=== PATIENT | female | born 1955 | race Caucasian/White ===

== ENCOUNTER 2016-08-23 23:48 | Observation (INO) | payer OTHER ==
--- NOTE | ~2016-08-23 | HP ---
History And Physical [address] [place]. [address] NAME: SAWYER VELA : 55 STATUS : ADM [place] PAT#: [id number] AGE: 60 ADM/REG DATE : 08/24/16 MR#: [id number] REPORT SERV DATE: 08/24/16 DICTATED BY: NGA LLANES DATE: 08/24/16 REPORT STATUS : Draft TRANSCRIBED BY: MODCynthia DATE: 08/24/16 DATE OF ADMISSION: 08/24/2016 LEAD [employer] SOFTWARE ENGINEER: Leena Frost MD CHIEF COMPLAINT: Atypical chest pain. HISTORY OF PRESENT ILLNESS: A pleasant 60-year-old white female with no known history of CAD. States that over the past three weeks, she has experienced episodes of chest discomfort worse over the past two days. She describes them as "sharp" radiating across her chest toward her back and into her neck. She did notify her GI doctor, who is currently treating her for ulcerative colitis or Crohn disease, as the patient believes her symptoms all began with the addition of Imuran to her regimen approximately three weeks ago. A PPI was added with some improvement in her symptoms, but not complete resolution. The patient denies reports associated shortness of breath, nausea, and dizziness. Denies diaphoresis or belching. At its most intense, she rates the chest pain a 10/10. At the time of interview in the [facility], she rates it a 1/10. She states the episode has been constant, improved with nitroglycerin provided by EMS. She reports no change in her activity. There seems to be no pattern to her symptoms. She did consume a hot dog and orange juice for dinner last night. The chest pain worsened last evening around 2029. She felt it prudent to come to the emergency room. The patient denies any personal history of myocardial infarction, stroke, DVT, or pulmonary embolus. The patient treated for the flu 06/2016, describes rare palpitations, does not consume caffeinated beverages. No syncopal episodes. Denies PND, but does report some orthopnea, sleeps on 4 pillows. PAST MEDICAL HISTORY: 1. Hypertension. 2. Cholesterol per PCP. 3. Denies diabetes. 4. Crohn disease with Remicade infusions. 5. GERD. 6. Depression. 7. History of nephrolithiasis. 8. Positive family history for CAD. SOCIAL HISTORY: She is with one child. She is a retired food beverage manager, currently disabled. Does not have an exercise routine. Denies tobacco, alcohol, or illicits. FAMILY HISTORY: Mother with a stroke and heart attack, at the age of 61. Father with reported CAD and emphysema, at 56. Brother with 2 valve replacements, remains alive at 62. Sisters with reported CAD and emphysema alive at 64 and 65. REVIEW OF SYSTEMS: History And Physical [address] [address] NAME: SAWYER VELA : 55 STATUS : ADM [place] PAT#: [id number] AGE: 60 ADM/REG DATE : 08/24/16 MR#: [id number] REPORT SERV DATE: 08/24/16 DICTATED BY: NGA LLANES DATE: 08/24/16 REPORT STATUS : Draft TRANSCRIBED BY: SARAH DATE: 08/24/16 A 14-point review of systems performed, significant for HPI including snores per report with no formal sleep study. Right-sided Port-A-Cath for Remicade infusions, history of scoliosis, ambulates with a cane. Otherwise, complete review of systems obtained and negative. ALLERGIES: ALLERGY TO PENICILLIN, UPSET STOMACH AND BLEEDING; PHENERGAN, CONFUSION, SEVERE HEADACHE; SULFA, ITCHING; CODEINE, ITCHING; ASPIRIN, BLEEDING IN STOMACH. HOME MEDICATIONS: Tylenol p.r.n., vitamin C 500 mg daily, Imuran 50 mg daily, vitamin D 5000 units daily, vitamin B12 500 mcg daily, hydrochlorothiazide 25 mg daily, Remicade infusion every 56 days most recently two to three weeks ago, pantoprazole 40 mg daily, Zantac 150 mg twice daily, Zoloft 50 mg twice daily. PHYSICAL EXAMINATION: VITAL SIGNS: Blood pressure 131/68, pulse 78, respirations 17, temperature 98.0, and O2 saturation 94% on room air. Height 5 feet 6 inches. No weight provided. GENERAL: Cooperative, in no apparent distress. Speech impediment. HEENT: Pupils 2 mm, sclera nonicteric. Nares patent. Moist mucous membranes. No xanthelasma. NECK: Trachea midline, no thyromegaly. No JVD. No bruits. LYMPH: No cervical lymphadenopathy. No supraclavicular lymphadenopathy. RESPIRATORY: Unlabored respirations. Breath sounds clear bilaterally to posterior auscultation. No wheezes or rhonchi. CARDIOVASCULAR: Regular rate. No murmur, rub or gallop appreciated. Extremities without edema. Pulses 2+ bilaterally. ABDOMEN: Soft, nontender, nondistended, normal bowel sounds auscultated throughout. No organomegaly. SKIN: Warm, dry extremities. No pallor, or cyanosis. PSYCHIATRIC: Appropriate affect. Alert, oriented x3. LABORATORY DATA: Troponin less than 0.02 x2 and third pending. Potassium 3.9, BUN 15, creatinine 0.68, glucose 114, and magnesium 1.7. Lipase 110. WBC 8.3, hemoglobin 13.4, hematocrit 39.3, and platelet count 370,000. D-dimer pending. EKG sinus rhythm. ASSESSMENT AND PLAN: 1. Atypical chest pain. The patient has been observed in the CPOU. Two sets of cardiac markers negative. Third pending. The patient is being held n.p.o. for now. We will proceed with MPI today. If D-dimer negative, the patient will be discharged home if low risk, no ischemia. If anything suggestive of ischemia, Cardiology referral will be initiated. Otherwise, the patient has a followup with her PCP. Scheduled for tomorrow 08/25/2016, which she has been instructed to keep. 2. Shortness of breath and fatigue. Check a D-dimer and TSH and free T4. Further recommendations are forthcoming those results. 3. Hypertension. Monitor blood pressure and continue home medications. EVAN/SARAH History And Physical [address] [address] NAME: SAWYER VELA : 55 STATUS : ADM [place] PAT#: [id number] AGE: 60 ADM/REG DATE : 08/24/16 MR#: [id number] REPORT SERV DATE: 08/24/16 DICTATED BY: NGA LLANES DATE: 08/24/16 REPORT STATUS : Draft TRANSCRIBED BY: SARAH DATE: 08/24/16 Nga Llanes, MSN, APPLICATION MANAGER-BC / [id number] CC: ARISTIDES Francis, APPLICATION MANAGER-BC SUGAR NEAL
[~2016-08-23 23:48] MED LIST: ACET500CAP PO; BENTYL10 PO; CYANO1000T PO; REMICADE IV; VITC500 PO; ZANTAC 150 PO; ZIAC5 PO; ZOL50 PO
[2016-08-24 01:45] LABS: BASOPHILS 0.4 %; BASOPHILS ABSOLUTE 0.03 10/3/uL (0.0-0.16); EOSINOPHILS 0.8 %; EOSINOPHILS ABSOLUTE 0.07 10/3/uL (0.0-0.53); HEMATOCRIT 39.3 % (36.0-48.0); HEMOGLOBIN 13.4 g/dL (12.0-16.0); IMMATURE GRANULOCYTES 0.2 %; IMMATURE GRANULOCYTES ABSOLUTE 0.02 10/3/uL (0.0-0.11); LYMPHOCYTES 39.8 %; LYMPHOCYTES ABSOLUTE 3.29 10/3/uL (0.67-4.30); MEAN CORPUS HGB CONC 34.1 g/dL (32.0-36.0); MEAN CORPUSCULAR HEMOGLOB 30.2 pg (26.0-34.0); MEAN CORPUSCULAR VOLUME 88.5 fL (80-100); MEAN PLATELET VOLUME 10.1 fL (9.2-13.0); MONOCYTES 7.9 %; MONOCYTES ABSOLUTE 0.65 10/3/uL (0.21-1.20); NEUTROPHILS 50.9 %; NEUTROPHILS ABSOLUTE 4.21 10/3/uL (2.02-8.40); PLATELET COUNT 370 10/3/uL (150-400); RBC DISTRIBUTION WIDTH 13.3 % (12.0-16.0); RED CELL COUNT 4.44 10/6/uL (4.0-5.6); WHITE BLOOD CELLS 8.3 10/3/uL (4.5-10.5)
[2016-08-24 01:47] LABS: ER CBC TAT 0 Hrs 04 MinsNP; MANUAL DIFF NO %
[2016-08-24 01:52] LABS: PARTIAL THROMBO TIME 25.5 SEC (22.5-37.2)
[2016-08-24 02:03] LABS: ALBUMIN 3.5 G/DL (3.5-5.0); ALKALINE PHOSPHATASE 54 U/L (45-117); BUN (BLOOD UREA NITROGEN) 15 MG/DL (6-23); CALCIUM, SERUM 9.2 MG/DL (8.5-10.4); CHEST PAIN PROFILE TAT 0 Hrs 22 Mins; CHLORIDE, SERUM 108 MMOL/L (96-112); CO2 (CARBON DIOXIDE) 27 MMOL/L (24-34); CREATININE 0.68 MG/DL (0.55-1.02); DIRECT BILIRUBIN 0.1 MG/DL (0.0-0.4); GFR AFRICAN AMERICAN 110 ML/MIN (>=60); GFR NON AFRICAN AMERICAN 95 ML/MIN (>=60); GLUCOSE, SERUM 114 MG/DL (60-99); INDIRECT BILIRUBIN(NOT ORDER) 0.1 MG/DL (0.1-0.9); POTASSIUM, SERUM 3.9 MMOL/L (3.5-5.3); SGOT(AST) 19 U/L (5-40); SGPT(ALT) 29 U/L (5-65); SODIUM, SERUM 146 MMOL/L (135-148); TOTAL BILIRUBIN 0.2 MG/DL (0-1.2); TOTAL PROTEIN 8.1 G/DL (6.0-8.5); TROPONIN I <0.02 NG/ML (<0.05)
[2016-08-24 02:27] LABS: SED RATE 34 MM/HR (0-20)
[2016-08-24] MEDS ORDERED: HYDROCHLOROT25 MG PO (03:22)
[2016-08-24] MEDS ORDERED: IMU PO (03:22)
[2016-08-24] MEDS ORDERED: ZOL50 PO (03:22)
[2016-08-24] MEDS ORDERED: PROTONIX PO (03:22)
[2016-08-24] MEDS ORDERED: REMICADE IV (03:24)
[2016-08-24] MEDS ORDERED: B12250T PO (03:25)
[2016-08-24] MEDS ORDERED: ZANTAC 150 PO (03:25)
[2016-08-24] MEDS ORDERED: VITC500 PO (03:25)
[2016-08-24] MEDS ORDERED: D 5000 PO (03:25)
[2016-08-24] MEDS ORDERED: ACET500CAP PO (03:26)
[2016-08-24 10:38] LABS: TROPONIN I <0.02 NG/ML (<0.05)
[2016-08-24 10:59] LABS: FREE T4 1.23 NG/DL (0.76-1.46)
[2016-08-25 03:54] LABS: BASOPHILS 0.3 %; BASOPHILS ABSOLUTE 0.02 10/3/uL (0.0-0.16); EOSINOPHILS 2.3 %; EOSINOPHILS ABSOLUTE 0.15 10/3/uL (0.0-0.53); HEMATOCRIT 35.5 % (36.0-48.0); HEMOGLOBIN 11.8 g/dL (12.0-16.0); IMMATURE GRANULOCYTES 0.3 %; IMMATURE GRANULOCYTES ABSOLUTE 0.02 10/3/uL (0.0-0.11); LYMPHOCYTES 40.6 %; LYMPHOCYTES ABSOLUTE 2.69 10/3/uL (0.67-4.30); MEAN CORPUS HGB CONC 33.2 g/dL (32.0-36.0); MEAN CORPUSCULAR HEMOGLOB 29.6 pg (26.0-34.0); MEAN CORPUSCULAR VOLUME 89.2 fL (80-100); MEAN PLATELET VOLUME 9.8 fL (9.2-13.0); MONOCYTES 9.7 %; MONOCYTES ABSOLUTE 0.64 10/3/uL (0.21-1.20); NEUTROPHILS 46.8 %; PLATELET COUNT 337 10/3/uL (150-400); RBC DISTRIBUTION WIDTH 13.4 % (12.0-16.0); RED CELL COUNT 3.98 10/6/uL (4.0-5.6); WHITE BLOOD CELLS 6.6 10/3/uL (4.5-10.5)
[2016-08-25 03:55] LABS: MANUAL DIFF NO %
[2016-08-25 04:11] LABS: A/G RATIO 0.7 (0.7-1.9); ALKALINE PHOSPHATASE 48 U/L (45-117); CALCIUM, SERUM 8.5 MG/DL (8.5-10.4); CHLORIDE, SERUM 109 MMOL/L (96-112); CHOL/HDL RATIO(NOT ORDER) 3.2 (0-5); CHOLESTEROL 167 MG/DL (< 200); CO2 (CARBON DIOXIDE) 28 MMOL/L (24-34); CREATININE 0.71 MG/DL (0.55-1.02); GFR AFRICAN AMERICAN 107 ML/MIN (>=60); GFR NON AFRICAN AMERICAN 93 ML/MIN (>=60); GLOBULIN 4.1 G/DL (2.5-4.1); GLUCOSE, SERUM 106 MG/DL (60-99); HDL CHOLESTEROL 53 MG/DL (> 49); LDL CHOLESTEROL 96 MG/DL (< 130); NON-HDL CHOLESTEROL 114 MG/DL (< 160); POTASSIUM, SERUM 4.1 MMOL/L (3.5-5.3); SGOT(AST) 16 U/L (5-40); SGPT(ALT) 25 U/L (5-65); SODIUM, SERUM 143 MMOL/L (135-148); TOTAL BILIRUBIN 0.3 MG/DL (0-1.2); TOTAL PROTEIN 7.1 G/DL (6.0-8.5); TRIGLYCERIDE 91 MG/DL (< 150)
[2016-08-25 04:12] LABS: BUN (BLOOD UREA NITROGEN) 19 MG/DL (6-23)
== END 2016-08-25 18:16 | disposition home or self-care (01) ==
LOC: ER 23:48 → CDU1 08-24 04:00
PROVIDERS: Clinical Nurse Specialist; Nurse Practitioner Acute Care
DX: I20.0 Unstable angina (principal); I10 Essential (primary) hypertension; K21.9 Gastro-esophageal reflux disease without esophagitis; F32.9 Major depressive disorder, single episode, unspecified; K50.90 Crohn's disease, unspecified, without complications; Z87.442 Personal history of urinary calculi; Z82.49 Family history of ischemic heart disease and other diseases of the circulatory system; Z82.3 Family history of stroke; Z82.5 Family history of asthma and other chronic lower respiratory diseases; Z88.0 Allergy status to penicillin; Z88.8 Allergy status to other drugs, medicaments and biological substances; Z88.2 Allergy status to sulfonamides; Z88.5 Allergy status to narcotic agent; Z79.899 Other long term (current) drug therapy; Z90.89 Acquired absence of other organs; Z98.890 Other specified postprocedural states; Z90.710 Acquired absence of both cervix and uterus
CPT/HCPCS: 71010; 71275; 74176; 78452; 80048; 80053; 80061; 80076; 83690; 83735; 84439; 84443; 84484; 85025; 85379; 85610; 85652; 85730; 93005; 93017; 93458; 96374; 96375; 99152; 99153; 99285; A9270-GY; A9502; C1760; C1769; C1887; C1894; C9113; G0378; J0153; J2250; J2405; J3010; J7500; Q9967